=== PATIENT | male | born 1995 | race Caucasian/White ===

== ENCOUNTER 2019-03-22 12:01 | Inpatient (IN) | payer BC, OTHER ==
[2019-03-22 12:53] LABS: ALT (SGPT) 189 U/L (8-55); AST (SGOT) 935 U/L (5-34); Albumin 4.1 g/dL (3.5-5.0); Alkaline Phosphatase 58 U/L (40-150); Anion Gap 14 mmol/L (10-20); BUN (Urea Nitrogen) 15 mg/dL (8.9-20.6); Bilirubin, Total 1.1 mg/dL (0.2-1.2); Calc. Creatinine Clearance 0 mL/min (70-130); Calcium 9.1 mg/dL (7.8-10.44); Carbon Dioxide 24 mmol/L (22-29); Chloride 104 mmol/L (98-107); Estimated GFR-MDRD Greater than 90; Globulin 2.3 g/dL (2.4-3.5); Glucose 115 mg/dL (70-105); Potassium 4.1 mmol/L (3.5-5.1); Protein, Total 6.4 g/dL (6.0-8.3); Sodium 138 mmol/L (136-145)
[2019-03-22 13:01] LABS: #Eosinphils 0.1 thou/uL (0.0-0.7); #Lymphocytes 1.4 thou/uL (1.20-3.40); #Monocytes 0.6 thou/uL (0.11-0.59); #Neutrophils 3.9 thou/uL (1.40-6.50); %Basophils 0.7 % (0.0-1.0); %Eosinophils 1.1 % (0.0-10.0); %Lymphocytes 23.3 % (21.0-51.0); %Monocytes 10.1 % (0.0-10.0); %Neutrophils 64.8 % (42.0-75.0); Hemoglobin 15.2 g/dL (14.0-18.0); Mean Corpuscular HGB CONC 34.2 g/dL (32.0-36.0); Mean Corpuscular Hemoglobin 30.7 pg (27.0-31.0); Mean Corpuscular Volume 89.7 fL (78.0-98.0); Platelet Count 115 thou/uL (130-400); Platelet Morphology Comment Appears Decreased; RBC Distribution Width 11.2 % (11.5-14.5); RBC Morphology Normal; Red Blood Cell (RBC) Count 4.95 mill/uL (4.70-6.10)
[2019-03-22 13:44] LABS: CK (CPK) Greater than 40000 U/L (30-200)
[2019-03-22 13:57] LABS: Lipase 15 U/L (8-78)
--- NOTE | 2019-03-22 14:41 | RAD ---
PORTABLE CHEST 1 VIEW: Date: 03/22/19 Time: 1327 hours HISTORY: Dark-colored urine. FINDINGS: The heart size is normal. The lungs are expanded without focal areas of consolidation, pneumothoraces , or pleural effusions. No acute osseous abnormalities are seen. IMPRESSION: No radiographic evidence of acute cardiopulmonary process. POS: [facility]
--- NOTE | 2019-03-22 14:41 | CT ---
CT OF THE ABDOMEN AND PELVIS WITH IV CONTRAST INDICATION: Dark urine with intermittent night sweats COMPARISON: None FINDINGS: ABDOMEN: Lung bases: Clear Liver: No focal lesion. Gallbladder: Normal appearing. Pancreas: Normal. Adrenal glands: Normal. Spleen: The spleen is enlarged measuring 13.5 cm Kidneys: Normal. Retroperitoneum of the upper abdomen: No lymphadenopathy or free fluid is identified. Pelvis: Small and large bowel: Normal Bladder: Normal. Rectal and perirectal soft tissues:Normal. Reproductive structures: Normal. Free fluid in pelvis: No free fluid is evident. Lymphadenopathy pelvis: No lymphadenopathy is evident. Osseous structures: No acute osseous abnormality. No destructive osteolytic or osteoblastic lesion i s identified. There is scattered degenerative and osteoarthritic changes. IMPRESSION: 1. Mild splenomegaly. 2. No additional acute abnormality.
[2019-03-22] MEDS ORDERED: ISOVUE-370 76%-LOCM 1 ML ONE (15:28)
[2019-03-22 15:43] LABS: HBCM Index 0.06 S/CO (0-0.79); Hep A IgM AB Non-Reactive (NonReactive); Hep A IgM S/CO 0.07 S/CO (0-0.79); Hep B Surf Ag Non-Reactive S/CO (NonReactive); Hep C IgG Ab Non-Reactive (NonReactive); Hep C Index 0.06 S/CO (0-0.79); Hepatitis B Core IgM Abs Non-Reactive (NonReactive)
[2019-03-22 19:06] LABS: Bilirubin Negative (Negative); Blood, Urine 2+ (Negative); Clarity Clear (Clear); Glucose, Urine (Dipstick) Normal (Negative); Leukocyte Negative Leu/uL (Negative); Nitrite Negative (Negative); Protein, Urine (Dipstick) 10 mg/dL (Neg-Trace); RBC/HPF None Seen HPF (0-3); Squamous Epithelial None Seen HPF (0-3); Urobilinogen Normal mg/dL (Less than 2); WBC/HPF 0-3 HPF (0-3)
[2019-03-22 19:13] LABS: Bacteria/HPF None Seen HPF (None Seen)
[2019-03-22 19:18] LABS: Amphetamine Not Detected (NotDetected); Barbiturates Screen Not Detected (NotDetected); Benzodiazepine Screen Not Detected (NotDetected); Cocaine Metabolite Screen Not Detected (NotDetected); Medtox Control Line Valid? VALID (VALID); Medtox Reader # READER 4; Methadone Not Detected (NotDetected); Methamphetamine Not Detected (NotDetected); Opiate Screen Not Detected (NotDetected); Oxycodone Screen Not Detected (NotDetected); Phencyclidine (PCP) Not Detected (NotDetected); THC/Cannabinoid Screen Detected (NotDetected); Tricyclic Screen Not Detected (NotDetected)
[2019-03-22 21:46] VITALS: BMI 22.2
[2019-03-22] MEDS: Sodium Chloride 0.9% 1,000 ML IV SCH (21:46)
[2019-03-22 22:23] LABS: Anion Gap 10 mmol/L (10-20); BUN (Urea Nitrogen) 12 mg/dL (8.9-20.6); Calc. Creatinine Clearance 186 mL/min (70-130); Calcium 8.5 mg/dL (7.8-10.44); Carbon Dioxide 28 mmol/L (22-29); Chloride 105 mmol/L (98-107); Estimated GFR-MDRD Greater than 90; Glucose 74 mg/dL (70-105); Potassium 3.4 mmol/L (3.5-5.1); Sodium 140 mmol/L (136-145)
[2019-03-22 22:58] LABS: CK (CPK) Greater than 40000 U/L (30-200)
[2019-03-23 00:13] LABS: HIV (1/2) Antibody/Antigen Non-Reactive (NonReactive); HIV 1/2 INDEX 0.12 S/CO (<1.00)
--- NOTE | 2019-03-23 02:35 | HP ---
REASON FOR ADMISSION: Dark urine. HISTORY OF PRESENT ILLNESS: This is a 23-year-old male patient who is a prisoner and for the past 5 months, he has been experiencing excessive night sweats and he signed up to be evaluated medically when he gave a urine sample, it was very dark. There was a concern for a urine infection. He was sent to our emergency room. His blood work did reveal that he is in rhabdo. The patient did mention to me that yesterday and the day before yesterday, he did push-ups and lunges for approximately 45 minutes each session. He did feel some cramping in his arms and chest, but the cramping was not excessive, therefore he was not concerned, but it has been a while that he did exercise. The patient denies pain, denies fevers, denies chills, denies cough. He says that they do check and place PPD on him and they have been negative. PAST MEDICAL HISTORY: 1. Anxiety. 2. Bipolar disorder. 3. Hypothyroidism. PAST SURGICAL HISTORY: Right eye lens transplant and surgery for retinal tear, surgery for glass in his right heel. MEDICATIONS: 1. Depakote slow release 750 mg q.a.m. 2. Effexor XR 150 mg q.a.m. 3. Levothyroxine 25 mcg p.o. once a day. ALLERGIES: TO CECLOR, WHICH GIVES HIM HIVES. FAMILY HISTORY: Negative for heart disease. SOCIAL HISTORY: He does smoke. He does not drink alcohol. He does use marijuana. REVIEW OF SYSTEMS: All systems reviewed, except the above mentioned change in the color of his urine, found to be negative. PHYSICAL EXAMINATION: GENERAL: Awake, alert, and oriented. Does not appear in distress. VITAL SIGNS: His blood pressure is 114/71, pulse of 82, saturating 99% on room air, and temperature 97.7. HEENT: Head is nontraumatic and normocephalic. Pupils are equal and reactive. Extraocular muscles are intact. Nonicteric sclerae. Well-injected conjunctivae. Oral mucosa normal. Nasal mucosa normal. NECK: Supple. No adenopathy. No murmur. Thyroid is not palpable. Trachea is midline. No supraclavicular lymphadenopathy. HEART: S1 and S2 regular. No murmur. No gallops. No frictional rubs. No displacement of PMI. LUNGS: Clear to auscultation bilaterally. No wheezes. No rhonchi. No crackles. ABDOMEN: Bowel sounds are positive. Nontender abdomen. No hepatosplenomegaly. EXTREMITIES: No lower extremity edema. No cyanosis. NEUROLOGIC: Cranial nerves 2 through 12 within normal limits. Normal motor function. Normal sensory function and reflexes. LABORATORY DATA: Blood work shows WBC 6, hemoglobin 15.2, platelets of 115, neutrophil count 64.8%. Sodium of 138, potassium 4.1, BUN 15, creatinine 0.84. AST 935, ALT 189. CK more than 40,000. Globulin 2.3. Hepatitis profile negative. ASSESSMENT AND PLAN: This is a 23-year-old male patient who did exercise recently after a long time of not exercising and had dark urine, found to be in rhabdomyolysis, brought to our emergency room, he is in [facility]pc. He also mentioned that he has been excessively sweating at nights for the past 5 months. The patient will be admitted to medical floor and will be aggressively hydrated. Already, his urine is clearing out. We will recheck his CK later on and tomorrow. Also, we will like to check a TSH also. We will try to initiate a workup for his excessive sweating by doing HIV status and also checking a QuantiFERON test to rule out these possibilities. We will continue his Depakote, Effexor, and levothyroxine. For DVT prophylaxis, he will be on SCDs. I believe that he needs to be more than 2 days in the hospital. Therefore, he will be an inpatient. Job ID: [id number]
[2019-03-23] MEDS: Sodium Chloride 0.9% 1,000 ML IV SCH ×3 (03:51→18:31)
[2019-03-23] MEDS: Levothyroxine Sodium 25 MCG TAB PO SCH (05:18)
[2019-03-23 05:59] LABS: Anion Gap 9 mmol/L (10-20); BUN (Urea Nitrogen) 9 mg/dL (8.9-20.6); Calc. Creatinine Clearance 194 mL/min (70-130); Calcium 8.3 mg/dL (7.8-10.44); Carbon Dioxide 28 mmol/L (22-29); Chloride 109 mmol/L (98-107); Estimated GFR-MDRD Greater than 90; Glucose 84 mg/dL (70-105); Potassium 3.9 mmol/L (3.5-5.1); Sodium 142 mmol/L (136-145)
[2019-03-23 06:33] LABS: CK (CPK) Greater than 40000 U/L (30-200)
[2019-03-23] MEDS: Venlafaxine HCl XR 150 MG CAP PO SCH (08:13)
--- NOTE | 2019-03-23 10:56 | PDOC.HOSPP ---
- Subjective Encounter Date: 03/23/19 Subjective: He denies any complaints, eager to go back to retirement. - Objective Vital Signs & Weight: Vital Signs (12 hours) Temp Pulse Resp BP Pulse Ox 03/23/19 08:13 97 03/23/19 07:52 97.9 F 83 16 95/57 L 97 03/23/19 04:36 97.8 F 63 19 117/66 96 03/23/19 00:10 98.0 F 85 19 101/60 98 Weight Weight 183 lb 1 oz I&O: 03/22/19 03/23/19 03/24/19 06:59 06:59 06:59 Intake Total 1220 Output Total 1140 Balance 80 Result Diagrams: 03/22/19 12:28 03/23/19 05:07 Hospitalist ROS - Medication Medications: Active Medications Generic Name Dose Route Start Last Admin Trade Name Freq PRN Reason Stop Dose Admin Divalproex Sodium 750 mg 03/23/19 09:00 03/23/19 08:13 Depakote Er PO 750 mg DAILY YULIET Administration Sodium Chloride 1,000 mls @ 150 mls/hr 03/22/19 21:17 03/23/19 10:40 Normal Saline 0.9% IV 1,000 mls .[id number] YULIET Administration Levothyroxine Sodium 25 mcg 03/23/19 06:00 03/23/19 05:18 Synthroid PO 25 mcg 0600 YULIET Administration Venlafaxine HCl 150 mg 03/23/19 09:00 03/23/19 08:13 Effexor Xr PO 150 mg DAILY YULIET Administration - Exam General Appearance: NAD, awake alert Eye: PERRL, anicteric sclera ENT: normocephalic atraumatic, no oropharyngeal lesions, moist mucosa Neck: supple, symmetric, no JVD, no thyromegaly, no lymphadenopathy, no carotid bruit Heart: RRR, no murmur, no gallops, no rubs, normal peripheral pulses Respiratory: CTAB, no wheezes, no rales, no ronchi, normal chest expansion, no tachypnea, normal percussion Gastrointestinal: soft, non-tender, non-distended, normal bowel sounds, no palpable masses, no hepatomegaly, no splenomegaly, no bruit Extremities: no cyanosis, no clubbing, no edema Skin: normal turgor, no lesions, no rashes Neurological: CN's grossly intact, normal sensation to touch, no weakness, no focal deficits, no new deficit Musculoskeletal: normal tone, normal strength, no muscle wasting Hosp A/P (1) Rhabdomyolysis Code(s): M62.82 - RHABDOMYOLYSIS Status: Acute (2) Hypothyroid Code(s): E03.9 - HYPOTHYROIDISM, UNSPECIFIED Status: Chronic (3) Anxiety Code(s): F41.9 - ANXIETY DISORDER, UNSPECIFIED Status: Chronic - Plan will continue aggressive IVF therapy and monitor CK levels. so far the workup for night sweats is negative, will follow quantiferon test results
[2019-03-23] MEDS ORDERED: Sodium Chloride 0.9% 1,000 ML IV SCH ×2 (11:00→19:45)
[2019-03-24] MEDS: Sodium Chloride 0.9% 1,000 ML IV SCH ×6 (00:07→20:28)
[2019-03-24] MEDS: Levothyroxine Sodium 25 MCG TAB PO SCH (05:25)
[2019-03-24 06:29] LABS: ALT (SGPT) 179 U/L (8-55); AST (SGOT) 684 U/L (5-34); Albumin 3.3 g/dL (3.5-5.0); Alkaline Phosphatase 46 U/L (40-150); Anion Gap 9 mmol/L (10-20); BUN (Urea Nitrogen) 7 mg/dL (8.9-20.6); Bilirubin, Total 0.5 mg/dL (0.2-1.2); Calc. Creatinine Clearance 206 mL/min (70-130); Calcium 8.6 mg/dL (7.8-10.44); Carbon Dioxide 29 mmol/L (22-29); Chloride 109 mmol/L (98-107); Estimated GFR-MDRD Greater than 90; Globulin 1.8 g/dL (2.4-3.5); Glucose 96 mg/dL (70-105); Protein, Total 5.1 g/dL (6.0-8.3); Sodium 143 mmol/L (136-145)
[2019-03-24 07:22] LABS: CK (CPK) Greater than 40000 U/L (30-200)
[2019-03-24] MEDS: Venlafaxine HCl XR 150 MG CAP PO SCH (08:57)
[2019-03-24] MEDS ORDERED: Sodium Chloride 0.9% 1,000 ML IV SCH ×2 (10:00→23:30)
--- NOTE | 2019-03-24 13:55 | PDOC.HOSPP ---
- Subjective Encounter Date: 03/24/19 Subjective: has no complaints - Objective Vital Signs & Weight: Vital Signs (12 hours) Temp Pulse Resp BP Pulse Ox 03/24/19 11:41 98.0 F 71 18 108/62 97 03/24/19 09:00 100 03/24/19 08:00 98.0 F 79 18 107/68 100 Weight Weight 183 lb 1 oz I&O: 03/23/19 03/24/19 03/25/19 06:59 06:59 06:59 Intake Total 1220 5492 Output Total 1140 5360 Balance 80 132 Result Diagrams: 03/22/19 12:28 03/24/19 05:28 Hospitalist ROS - Medication Medications: Active Medications Generic Name Dose Route Start Last Admin Trade Name Baldemar PRN Reason Stop Dose Admin Divalproex Sodium 750 mg 03/23/19 09:00 03/24/19 09:20 Depakote Er PO 750 mg DAILY YULIET Administration Sodium Chloride 1,000 mls @ 200 mls/hr 03/24/19 09:57 03/24/19 11:10 Normal Saline 0.9% IV 1,000 mls .Q5H YULIET Administration Levothyroxine Sodium 25 mcg 03/23/19 06:00 03/24/19 05:25 Synthroid PO 25 mcg 0600 YULIET Administration Sodium Chloride 10 ml 03/23/19 21:00 03/24/19 08:58 Flush - Normal Saline IVF 10 ml Q12HR YULIET Administration Venlafaxine HCl 150 mg 03/23/19 09:00 03/24/19 08:57 Effexor Xr PO 150 mg DAILY YULIET Administration - Exam General Appearance: NAD, awake alert Eye: PERRL, anicteric sclera ENT: normocephalic atraumatic, no oropharyngeal lesions, moist mucosa Neck: supple, symmetric, no JVD, no thyromegaly, no lymphadenopathy, no carotid bruit Heart: RRR, no murmur, no gallops, no rubs, normal peripheral pulses Respiratory: CTAB, no wheezes, no rales, no ronchi, normal chest expansion, no tachypnea, normal percussion Gastrointestinal: soft, non-tender, non-distended, normal bowel sounds, no palpable masses, no hepatomegaly, no splenomegaly, no bruit Extremities: no cyanosis, no clubbing, no edema Skin: normal turgor, no lesions, no rashes Hosp A/P (1) Rhabdomyolysis Code(s): M62.82 - RHABDOMYOLYSIS Status: Acute (2) Hypothyroid Code(s): E03.9 - HYPOTHYROIDISM, UNSPECIFIED Status: Chronic (3) Anxiety Code(s): F41.9 - ANXIETY DISORDER, UNSPECIFIED Status: Chronic - Plan CK still elevated ----will continue aggressive IVF therapy and monitor CK levels and monitor his kidney function as well as his LFTs so far the workup for night sweats is negative, will follow quantiferon test results.
[2019-03-25] MEDS: Sodium Chloride 0.9% 1,000 ML IV SCH ×5 (00:24→21:55)
[2019-03-25] MEDS: Levothyroxine Sodium 25 MCG TAB PO SCH (05:56)
[2019-03-25 07:56] LABS: ALT (SGPT) 173 U/L (8-55); AST (SGOT) 568 U/L (5-34); Albumin 3.2 g/dL (3.5-5.0); Alkaline Phosphatase 45 U/L (40-150); Anion Gap 7 mmol/L (10-20); BUN (Urea Nitrogen) 8 mg/dL (8.9-20.6); Bilirubin, Total 0.6 mg/dL (0.2-1.2); Calc. Creatinine Clearance 209 mL/min (70-130); Calcium 8.4 mg/dL (7.8-10.44); Carbon Dioxide 31 mmol/L (22-29); Chloride 108 mmol/L (98-107); Estimated GFR-MDRD Greater than 90; Globulin 1.8 g/dL (2.4-3.5); Glucose 81 mg/dL (70-105); Potassium 3.7 mmol/L (3.5-5.1); Sodium 142 mmol/L (136-145)
[2019-03-25] MEDS: Venlafaxine HCl XR 150 MG CAP PO SCH (08:01)
[2019-03-25 08:53] LABS: CK (CPK) 31275 U/L (30-200)
--- NOTE | 2019-03-25 19:11 | PDOC.HOSPP ---
- Subjective Encounter Date: 03/25/19 Subjective: frustrated and wants to leave - Objective Vital Signs & Weight: Vital Signs (12 hours) Temp Pulse Resp BP Pulse Ox 03/25/19 08:01 100 03/25/19 07:57 98.0 F 70 16 110/64 100 Weight Weight 183 lb 1 oz I&O: 03/24/19 03/25/19 03/26/19 06:59 06:59 06:59 Intake Total 5492 7930 2444 Output Total 5360 6550 1040 Balance 132 1380 1404 Result Diagrams: 03/22/19 12:28 03/25/19 07:14 Hospitalist ROS - Medication Medications: Active Medications Generic Name Dose Route Start Last Admin Trade Name Freq PRN Reason Stop Dose Admin Divalproex Sodium 750 mg 03/23/19 09:00 03/25/19 08:01 Depakote Er PO 750 mg DAILY YULIET Administration Sodium Chloride 1,000 mls @ 200 mls/hr 03/24/19 09:57 03/25/19 17:12 Normal Saline 0.9% IV 1,000 mls .Q5H YULIET Administration Levothyroxine Sodium 25 mcg 03/23/19 06:00 03/25/19 05:56 Synthroid PO 25 mcg 0600 YULIET Administration Sodium Chloride 10 ml 03/23/19 21:00 03/25/19 19:09 Flush - Normal Saline IVF Not Given Q12HR YULIET Venlafaxine HCl 150 mg 03/23/19 09:00 03/25/19 08:01 Effexor Xr PO 150 mg DAILY YULITE Administration - Exam General Appearance: NAD, awake alert Eye: PERRL, anicteric sclera ENT: normocephalic atraumatic, no oropharyngeal lesions, moist mucosa Neck: supple, symmetric, no JVD, no thyromegaly, no lymphadenopathy, no carotid bruit Heart: RRR, no murmur, no gallops, no rubs, normal peripheral pulses Respiratory: CTAB, no wheezes, no rales, no ronchi, normal chest expansion, no tachypnea, normal percussion Gastrointestinal: soft, non-tender, non-distended, normal bowel sounds, no palpable masses, no hepatomegaly, no splenomegaly, no bruit Extremities: no cyanosis, no clubbing, no edema Skin: normal turgor, no lesions, no rashes Neurological: CN's grossly intact, normal sensation to touch, no weakness, no focal deficits, no new deficit Hosp A/P (1) Rhabdomyolysis Code(s): M62.82 - RHABDOMYOLYSIS Status: Acute (2) Hypothyroid Code(s): E03.9 - HYPOTHYROIDISM, UNSPECIFIED Status: Chronic (3) Anxiety Code(s): F41.9 - ANXIETY DISORDER, UNSPECIFIED Status: Chronic - Plan CK still elevated but this is the first day that it goes below 40 000 , will continue aggressive IVF therapy and monitor CK levels and monitor his kidney function as well as his LFTs hopefully tomorrow he can be released. so far the workup for night sweats is negative, will follow quantiferon test results.
[2019-03-25] MEDS ORDERED: Sodium Chloride 0.9% 1,000 ML IV SCH (19:15)
[2019-03-26] MEDS: Sodium Chloride 0.9% 1,000 ML IV SCH ×4 (02:38→17:07)
[2019-03-26] MEDS: Levothyroxine Sodium 25 MCG TAB PO SCH (05:46)
[2019-03-26 07:47] LABS: ALT (SGPT) 165 U/L (8-55); AST (SGOT) 462 U/L (5-34); Albumin 3.2 g/dL (3.5-5.0); Alkaline Phosphatase 44 U/L (40-150); Anion Gap 8 mmol/L (10-20); BUN (Urea Nitrogen) 9 mg/dL (8.9-20.6); Bilirubin, Total 0.6 mg/dL (0.2-1.2); Calc. Creatinine Clearance 194 mL/min (70-130); Calcium 8.7 mg/dL (7.8-10.44); Carbon Dioxide 29 mmol/L (22-29); Chloride 108 mmol/L (98-107); Estimated GFR-MDRD Greater than 90; Globulin 1.9 g/dL (2.4-3.5); Glucose 105 mg/dL (70-105); Potassium 3.9 mmol/L (3.5-5.1); Protein, Total 5.1 g/dL (6.0-8.3); Sodium 141 mmol/L (136-145)
[2019-03-26] MEDS: Venlafaxine HCl XR 150 MG CAP PO SCH (08:10)
[2019-03-26 08:27] LABS: CK (CPK) 21994 U/L (30-200)
--- NOTE | 2019-03-26 17:10 | PDOC.HOSPP ---
- Subjective Encounter Date: 03/26/19 Encounter Time: 17:08 Subjective: Mr. Oliver was seen today in follow-up of rhabdomyolysis. He does not have any complaints today. He says he feels fine. - Objective Vital Signs & Weight: Vital Signs (12 hours) Temp Pulse Resp BP Pulse Ox 03/26/19 08:00 96 03/26/19 07:38 97.8 F 65 18 108/66 96 Weight Weight 183 lb 1 oz I&O: 03/25/19 03/26/19 03/27/19 06:59 06:59 06:59 Intake Total 7930 6324 Output Total 6550 1040 Balance 1380 5284 Result Diagrams: 03/22/19 12:28 03/26/19 07:09 Hospitalist ROS - Medication Medications: Active Medications Generic Name Dose Route Start Last Admin Trade Name Freq PRN Reason Stop Dose Admin Divalproex Sodium 750 mg 03/23/19 09:00 03/26/19 08:10 Depakote Er PO 750 mg DAILY YULIET Administration Sodium Chloride 1,000 mls @ 200 mls/hr 03/24/19 09:57 03/26/19 17:07 Normal Saline 0.9% IV Not Given .Q5H YULIET Levothyroxine Sodium 25 mcg 03/23/19 06:00 03/26/19 05:46 Synthroid PO 25 mcg 0600 YULIET Administration Sodium Chloride 10 ml 03/23/19 21:00 03/26/19 08:09 Flush - Normal Saline IVF Not Given Q12HR YULIET Venlafaxine HCl 150 mg 03/23/19 09:00 03/26/19 08:10 Effexor Xr PO 150 mg DAILY YULIET Administration - Exam General Appearance: NAD Eye: PERRL, anicteric sclera Neck: no lymphadenopathy Heart: RRR, no murmur, no gallops, no rubs, normal peripheral pulses Respiratory: CTAB, no wheezes, no rales, no ronchi, normal chest expansion Gastrointestinal: soft, non-tender, non-distended, normal bowel sounds, no palpable masses Extremities: no cyanosis, no clubbing, no edema Skin: normal turgor, no lesions (+ multiple tatoos) Hosp A/P (1) Rhabdomyolysis Code(s): M62.82 - RHABDOMYOLYSIS Status: Acute (2) Hypothyroid Code(s): E03.9 - HYPOTHYROIDISM, UNSPECIFIED Status: Chronic - Plan * Rhabdomyolysis- improving * Stable for discharge home * Follow-up with Quaniferon as outpatient
[2019-03-26 17:31] VITALS: BP 130/86; TEMP 98.3
--- NOTE | 2019-03-26 21:30 | DIS ---
DATE OF ADMISSION: 03/22/2019 DATE OF DISCHARGE: 03/26/2019 DISCHARGE DISPOSITION: Back to intermediate. DISCHARGE DIAGNOSES: 1. Rhabdomyolysis. 2. Hypothyroidism. DISCHARGE MEDICATIONS: 1. Venlafaxine 150 mg p.o. daily. 2. Levothyroxine 25 mcg daily. 3. Depakote 750 mg daily. PROCEDURES DONE DURING THIS ADMISSION: The patient had a CT scan of the abdomen and pelvis, showing mild splenomegaly but no acute abnormality. CODE STATUS: Full code. ALLERGIES: TO CEFACLOR. HOSPITAL COURSE: Mr. Oliver is a pleasant 23-year-old gentleman who [facility]. He says that he has been having night sweats off and on for several weeks and for this reason, lab work was done in the correctional facility. It was determined that he had an extremely high CK level and for this reason, he was sent to our facility. He denies any new medications. He says he has been on Depakote as well as Effexor for a long time. He admits he had been off levothyroxine off and on due to being in and out of intermediate, but has been back on this medication. He does say that he has started doing some pushups and lunges in the several days prior to being hospitalized, but did not really think much of it. He did notice some soreness in his upper chest, back, and shoulders, but thought that this was typical following exercise. Since he has been in the hospital, he has been on IV fluids and his CPK level has gone from greater than 40,000 down to 21,000. He also had elevated LFTs, which were of unclear etiology. However, this is improving as well. He had hepatitis panel as well as an HIV serology done which were negative. He also had a QuantiFERON gold. However, this one is currently pending. The CPK as well as liver function tests were all trending down at the time of discharge, and his creatinine remained normal throughout his hospital stay. Since he is clinically stable, we will be discharging him back to the correctional facility. I have requested that he continue to stay hydrated. I have written a note to the intermediate to allow him to have one Gatorade package a day which will be mixed with water. The guards tell me that this is available to the inmates. Also, to have a CK, chemistry panel, as well as liver function test repeated in 1 week. Job ID: [id number]
[2019-03-28 15:12] LABS: QuantiFERON-TB Gold Plus Negative (Negative)
--- NOTE | 2019-03-29 19:08 | PQF ---
SAP Content Administrator Crystal Reports Winform Viewer CESARIO BROWN TONI MD [id number] [id number] CLINICAL DOCUMENTATION CLARIFICATION FORM: POST DISCHARGE Addendum to original discharge summary date: ____ Late entry note date: __ DATE: 03/29/19 ATTN: Parveen Fierro Please exercise your independent, professional judgment in responding to the clarification form. Clinical indicators are provided on the bottom of this form for your review Can you please further specify the type of rhabdomyolysis? Please check appropriate box(s): [ ] Traumatic rhabdomyolysis [ ] Nontraumatic rhabdomyolysis [ ] Other diagnosis please specify [ ] Unable to determine In addition, please specify: Present on Admission (POA): [ ] Yes [ ] No [ ] Unable to determine For continuity of documentation, please document condition throughout progress notes and discharge summary. Thank You. CLINICAL INDICATORS - SIGNS / SYMPTOMS / LABS H and P 9 pg.1- "He did push ups and lunges for approximately 45mins each session. He feel some cramping in his arm and chest" H and P 9 pg.1- "His blood work did reveal that he is in Rhabdo" H and P 03/22 pg.3- "23 year old male patient who did exercise recently after a long time of not exercising and had dark urine , found to be in rhabdomyolysis " DS03/26 pg.1- "He did notice some soreness in his upper chest,back, and shoulders but thought that this was typical following exercise" DS9 pg.1- "CPK level has gone from greater 40,000 down to 21,000" RISK FACTORS Started doing some push ups and lounges in the several days prior to being hospitalized- DS pg.1 TREATMENTS: IV fluids- MAR 03/22 CPK monitoring- Laboratory 03/22 (This form is maintained as a part of the permanent medical record) 2014 [employer] All Rights Reserved [email or web address] [not provided] MTDD
== END 2019-03-26 18:22 | DRG 558 ==
LOC: ERS 12:01 → EEVIPCON 15:40 → T4-A 15:40 → T4-B 03-23 21:16
PROVIDERS: ADMIT Internal Medicine; ATTEND Internal Medicine
DX: M62.82 Rhabdomyolysis (principal); F41.9 Anxiety disorder, unspecified; F31.9 Bipolar disorder, unspecified; E03.9 Hypothyroidism, unspecified; Z94.89 Other transplanted organ and tissue status; Z79.899 Other long term (current) drug therapy
CPT/HCPCS: 36415; 71045; 74177; 80048; 80053; 80074; 80306; 81003; 81015; 82550; 83690; 84443; 85025; 86480; 87389; 96360; 96361; Q9966

== ENCOUNTER 2019-05-19 08:25 | Outpatient (CLI) | payer OTHER ==
--- NOTE | 2019-05-19 09:05 | ULT ---
SONOGRAM LIVER WITH DUPLEX EVALUATION: Date: 05/19/19 HISTORY: Hepatitis. Abnormal liver function tests. FINDINGS: Gallbladder has a normal appearance. No stones visible. Common duct is 0.4 cm. Liver is unremarkable without focal mass or intrahepatic biliary dilatation. No free fluid. Spleen measures up to 11.9 cm. Good color and spectral Doppler flow within the hepatic and splenic arteries. Portal venous flow is t owards the liver. Hepatic venous flow is towards the IVC. IMPRESSION: Normal exam. POS: [facility]
== END 2019-05-19 08:26 | disposition home or self-care (01) ==
LOC: BICULT 08:25
PROVIDERS: ATTEND Internal Medicine Gastroenterology
DX: R94.5 Abnormal results of liver function studies (principal); R16.1 Splenomegaly, not elsewhere classified; M62.82 Rhabdomyolysis; F31.81 Bipolar II disorder
CPT/HCPCS: 76705